=== PATIENT | female | born 1945 | race Caucasian/White ===

== ENCOUNTER 2016-07-27 15:29 | Emergency (ER) | payer MEDICARE, BC ==
[~2016-07-27] VITALS: Ht 157.5 cm; Wt 72.7 kg
[~2016-07-27 15:29] MED LIST: HCTZ 25MG25 MG PO; LORTAB 5/500 501 TAB PO; SIMVASTATIN20 MG PO; THERA TEARS PO; TRAVATAN Z 5 ML5 ML OU
[2016-07-27 15:35] VITALS: TEMP 97.7
[2016-07-27] MEDS ORDERED: VITAMIN D1000 IU PO (15:59)
[2016-07-27] MEDS ORDERED: NATURAL E400 IU PO (15:59)
[2016-07-27] MEDS ORDERED: ALLEGRA 60MG TA60 MG PO (15:59)
[2016-07-27] MEDS ORDERED: B-12 100 MCG (16:00)
[2016-07-27 16:20] LABS: BASO % 0.3 % (0.0-2.0); EOS % 0.3 % (0-4.0); GRAN # 7.3 (1.4-6.5); GRAN % 80.6 % (42.2-75.2); HEMATOCRIT 43.9 % (37.0-47.0); LYMPH # 1.4 (1.2-3.4); MEAN CELL VOLUME 92 fl (80.0-100.0); MEAN CORPUSCULAR HEMOGLOBIN 32 pg (27.0-31.0); MEAN CORPUSCULAR HGB CONC 34 g/dl (33.0-37.0); MEAN PLATELET VOLUME 10.2 fl (7.4-10.4); MONO # 0.2 (0.1-0.6); MONO % 2.4 % (1.7-9.3); PLATELET COUNT 213 K/mm3 (130-400); RED BLOOD COUNT 4.76 M/mm3 (4.10-5.30); REDCELL DISTRIBUTION WIDTH-CV 12.1 % (11.5-14.5)
[2016-07-27 16:34] LABS: ADJUSTED CALCIUM 9.6 mg/dL (8.4-10.2); ALANINE AMINOTRANSFERASE 26 U/L (9-52); ALBUMIN 4.4 gm/dL (3.5-5.0); ALKALINE PHOSPHATASE 55 U/L (50-136); ANION GAP 13 mmol/L (7-16); BLOOD UREA NITROGEN 16 mg/dL (7-17); CALCIUM 9.9 mg/dL (8.4-10.2); CARBON DIOXIDE 28 mmol/L (22-30); CHLORIDE 96 mmol/L (98-107); CREATININE, serum 0.59 mg/dL (0.52-1.25); GLUCOSE 109 mg/dL (74-106); LIPASE 210 U/L (23-300); POTASSIUM 3.7 mmol/L (3.4-5.0); SODIUM 138 mmol/L (137-145); TOTAL PROTEIN 7.6 gm/dL (6.4-8.2)
[2016-07-27 16:40] LABS: C-REACTIVE PROTEIN < 0.5 mg/dL (0.0-0.9)
[2016-07-27 16:45] LABS: TROPONIN-I < 0.012 ng/mL (0.000-0.034)
[2016-07-27 16:58] LABS: PH 6 (5-8); SQUAMOUS EPITHELIAL None Seen /hpf; URINE APPEARANCE Clear; URINE BACTERIA Rare /hpf; URINE BILIRUBIN Negative (NEGATIVE); URINE BLOOD Negative (NEGATIVE); URINE COLOR Yellow; URINE GLUCOSE Negative (NEGATIVE); URINE KETONE 2+ (NEGATIVE); URINE UROBILINOGEN Negative (NEGATIVE)
[2016-07-27] MEDS ORDERED: ZOFRAN 4MG T4 MG/TAB PO (18:35)
[2016-07-27] MEDS ORDERED: NORCO 325 MG-51 TAB PO (18:35)
[2016-07-27 18:48] VITALS: BP 144/88; PULSE 89
== END 2016-07-27 18:48 | disposition home or self-care (01) ==
LOC: COL.ER 15:29
PROVIDERS: Emergency Medicine
DX: R10.31 Right lower quadrant pain (principal); R19.00 Intra-abdominal and pelvic swelling, mass and lump, unspecified site; I10 Essential (primary) hypertension
CPT/HCPCS: J1200; J2270; J2405; J2930; J7030; Q9967

== ENCOUNTER → 2016-08-16 | Outpatient (CLI) | payer MEDICARE, BC ==
[~2016-08-16] MED LIST changes: +ALLEGRA 180MG180 MG PO; +ALLEGRA 60MG TA60 MG PO; +B-12 100 MCG; +NATURAL E400 IU PO; +NORCO 325 MG-51 TAB PO; +VITAMIN D1000 IU PO; +ZOFRAN 4MG T4 MG/TAB PO
== END ==
LOC: COL.LAB 08:13
DX: R19.00 Intra-abdominal and pelvic swelling, mass and lump, unspecified site (principal)

== ENCOUNTER 2016-08-23 09:02 | Day surgery (SDC) | payer MEDICARE, BC ==
[~2016-08-23] VITALS: Ht 157.5 cm; Wt 74.5 kg
[~2016-08-23 09:02] MED LIST changes: -ALLEGRA 180MG180 MG PO
[2016-08-23] MEDS ORDERED: ALLEGRA 180MG180 MG PO (09:26)
[2016-08-23 09:51] VITALS: BP 143/75; PULSE 71; TEMP 97.8
[2016-08-23 11:07] VITALS: BP 119/72; PULSE 81
[2016-08-23 11:22] VITALS: BP 118/62; PULSE 74
[2016-08-23 11:47] VITALS: BP 123/64; PULSE 73
[2016-08-23 13:32] VITALS: BP 119/67; PULSE 78
== END 2016-08-23 11:55 | disposition home or self-care (01) ==
LOC: SDCO 09:02
DX: Z12.11 Encounter for screening for malignant neoplasm of colon (principal); K57.30 Diverticulosis of large intestine without perforation or abscess without bleeding; E78.5 Hyperlipidemia, unspecified; I10 Essential (primary) hypertension; M85.80 Other specified disorders of bone density and structure, unspecified site; M19.90 Unspecified osteoarthritis, unspecified site; Z79.899 Other long term (current) drug therapy
CPT/HCPCS: OP; J2250; J2405; J3010; J7030

== ENCOUNTER → 2018-07-06 | Outpatient (CLI) | payer MEDICARE, BC ==
[~2018-07-06] MED LIST changes: +ALLEGRA 180MG180 MG PO
== END ==
LOC: MC.RAD 14:04
DX: Z12.31 Encounter for screening mammogram for malignant neoplasm of breast (principal)

== ENCOUNTER → 2021-04-08 | Outpatient (RCR) | payer MEDICARE, BC | END | disposition home or self-care (01) | LOC: WSC → WSPT 01-08 14:53 → WSC 01-14 09:45 → WSPT 01-22 09:45 → WSC 02-15 10:30 → WSPT 02-22 09:45 → WSC 03-02 09:45 → WSPT 03-04 09:45 → WSC 03-09 09:45 → WSPT 03-29 09:45 → WSC 04-06 09:45 | DX: M17.0 Bilateral primary osteoarthritis of knee (principal) ==

== ENCOUNTER 2021-05-27 11:00 | Outpatient (RCR) | payer MEDICARE, BC | END 2021-06-07 | disposition home or self-care (01) | LOC: WSPT | DX: M15.4 Erosive (osteo)arthritis (principal) ==

== ENCOUNTER → 2021-07-05 | Outpatient (RCR) | payer MEDICARE, BC | END | disposition home or self-care (01) | LOC: WSC → WSPT 06-14 10:13 → WSC 06-17 09:45 | DX: M15.4 Erosive (osteo)arthritis (principal) ==

== ENCOUNTER → 2021-08-05 | Outpatient (RCR) | payer MEDICARE, BC | END | disposition still patient (30) | LOC: WSC | DX: M15.4 Erosive (osteo)arthritis (principal) ==

== ENCOUNTER 2021-09-17 19:43 | Emergency (ER) | payer MEDICARE, BC ==
[~2021-09-17] VITALS: Ht 157.5 cm; Wt 67.7 kg
[2021-09-17 19:53] VITALS: BP 134/87; PULSE 95; TEMP 97.4
== END 2021-09-17 21:37 | disposition home or self-care (01) ==
LOC: COL.ER 19:43
DX: S92.321A Displaced fracture of second metatarsal bone, right foot, initial encounter for closed fracture (principal); S93.104A Unspecified dislocation of right toe(s), initial encounter; Z98.890 Other specified postprocedural states; Z91.040 Latex allergy status; W18.43XA Slipping, tripping and stumbling without falling due to stepping from one level to another, initial encounter